=== PATIENT | female | born 1985 | race Caucasian/White ===

== ENCOUNTER 2016-09-01 17:47 | Inpatient (IN) | payer OTHER ==
[~2016-09-01 17:47] MED LIST: BACTRIM DS TABL1 TAB PO; COLACE100 MG PO; IBUPROFEN200 MG; IBUPROFEN800 M1 PO; PERCOCET 5-3251 EACH PO; PERCOCET 5/3251 TAB PO; PRENATAL VITAMI; PROBIOTIC1 EA10 PO; SKELAXIN800 MG PO; ZOFRAN4 MG PO
[2016-09-01 22:50] LABS: BASO % 0.1 % (0-2); EOS % 0.7 % (0-7); EOSINOPHIL ABSOLUTE COUNT 0.1 tho/cmm (0.0-0.7); HCT-HEMATOCRIT 34.7 % (34.0-49.0); HGB-HEMOGLOBIN 11.6 gm/dl (12.0-15.5); LYMPH % 10.8 % (20-45); MCH (MEAN CORPUSCULAR HGB) 30.2 pg (28.0-32.0); MCHC MEAN CORPUSCULAR HGB CONC 33.4 % (32.0-36.0); MCV (MEAN CELL VOLUME) 90.4 fl (82.0-96.0); MEAN PLATELET VOLUME 11.1 cmc (9.4-12.4); MONO % 4.2 % (0-12); MONOCYTE ABSOLUTE COUNT 0.4 tho/cmm (0.0-1.2); NEUTROPHIL ABSOLUTE COUNT 7.6 tho/cmm (1.6-8.0); NEUTROPHIL-AUTOMATED 7.6 tho/cmm (1.6-8.0); NEUTROPHILS % 84.2 % (40-80); PLATELET COUNT 200 tho/cmm (150-450); RED BLOOD COUNT 3.84 mil/cmm (4.00-5.20); WHITE BLOOD COUNT 9.1 tho/cmm (4.0-10.0)
[2016-09-02 13:14] LABS: BASO % 0.1 % (0-2); EOS % 0.1 % (0-7); HCT-HEMATOCRIT 35.2 % (34.0-49.0); HGB-HEMOGLOBIN 11.9 gm/dl (12.0-15.5); IMMATURE GRANULOCYTES ABSOLUTE 0.04 tho/cmm (0-0.03); IMMATURE GRANULOCYTES PERCENT 0.3 % (0-0.3); LYMPH % 7.2 % (20-45); MCH (MEAN CORPUSCULAR HGB) 30.3 pg (28.0-32.0); MCHC MEAN CORPUSCULAR HGB CONC 33.8 % (32.0-36.0); MCV (MEAN CELL VOLUME) 89.6 fl (82.0-96.0); MONO % 8.2 % (0-12); MONOCYTE ABSOLUTE COUNT 1.1 tho/cmm (0.0-1.2); NEUTROPHIL ABSOLUTE COUNT 11.4 tho/cmm (1.6-8.0); NEUTROPHIL-AUTOMATED 11.4 tho/cmm (1.6-8.0); NEUTROPHILS % 84.1 % (40-80); PLATELET COUNT 226 tho/cmm (150-450); RED BLOOD COUNT 3.93 mil/cmm (4.00-5.20); RED CELL DISTRIBUTION WIDTH 13.1 % (12.4-16.4); WHITE BLOOD COUNT 13.5 tho/cmm (4.0-10.0)
[2016-09-02] MEDS ORDERED: IBUPROFEN800 M1 PO (17:37)
[2016-09-02] MEDS ORDERED: NORCO 5-325 TA1 EACH PO (17:37)
== END 2016-09-02 19:05 | DRG 766 ==
LOC: LDR 17:47 → OBGD 22:30
PROVIDERS: Obstetrics & Gynecology Obstetrics; ADMIT Advanced Practice Midwife
PROC: 10D00Z1 Extraction of Products of Conception, Low, Open Approach (ICD-10-PCS; principal; 2016-09-01)
DX: O75.82 Onset (spontaneous) of labor after 37 completed weeks of gestation but before 39 completed weeks gestation, with delivery by (planned) cesarean section (principal); Z3A.38 38 weeks gestation of pregnancy; Z37.0 Single live birth; O34.211 Maternal care for low transverse scar from previous cesarean delivery
CPT/HCPCS: J0690; J2590